=== PATIENT | male | born 2000 | race Caucasian/White ===

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

== ENCOUNTER 2020-06-04 18:44 | Emergency (ER) | payer SELFPAY ==
[~2020-06-04] VITALS: Ht 177.8 cm; Wt 70.1 kg
[2020-06-04 18:52] VITALS: BP 114/79
== END 2020-06-04 19:57 | disposition home or self-care (01) ==
LOC: MED 18:44
DX: F41.9 Anxiety disorder, unspecified (principal); F17.210 Nicotine dependence, cigarettes, uncomplicated
CPT/HCPCS: 99283